=== PATIENT | female | born 1990 | race African-American/Black ===

== ENCOUNTER 2016-07-30 01:22 | Emergency (ER) | payer OTHER ==
[2016-07-30 02:04] VITALS: BP 144/63; PULSE 74; TEMP 97.5; BMI 26.4
[2016-07-30 02:38] LABS: BASOPHIL 0.3 % (0-2.0); EOSINOPHIL 1.2 % (0-4.5); MCH 26.7 pg (25.7-33.7); MCHC 32.5 g/dl (32.0-36.0); MEAN PLT VOLUME 8.1 fl (7.5-11.1); NEUTROPHILS 64.9 % (42.8-82.8); PLATELET COUNT 225 K/MM3 (134-434); RDW 14.3 % (11.6-15.6); WHITE BLOOD COUNT 12.5 K/mm3 (4.0-10.0)
--- NOTE | 2016-07-30 05:06 | PDOC ---
History of Present Illness - General Chief Complaint: Vaginal Bleeding Stated Complaint: ABD PAIN/VAGINAL BLEEDING Time Seen by Provider: 07/30/16 02:11 - History of Present Illness Initial Comments: 07/30/16 05:00 CHIEF COMPLAINT: bleeding s/p HISTORY OF PRESENT ILLNESS: 26 yo F s/p medical yesterday presents to ED with vaginal bleeding. Patient states she was told by [facility] she should go to ER if she has continuous bleeding. Patient states she feels a little dizzy but denies any headache, nausea, vomiting. No recent travel or sick contacts. PAST MEDICAL HISTORY: Denies past medical history FAMILY HISTORY: Denies SOCIAL HISTORY: Denies tobacco, alcohol, illicit drug use. SURGICAL HISTORY: Denies ALLERGIES: No known drug allergies REVIEW OF SYSTEMS General/Constitutional: Denies fever or chills. Denies weakness, weight change. HEENT: Denies change in vision. Denies ear pain or discharge. Denies sore throat. Cardiovascular: Denies chest pain or shortness of breath. Respiratory: Denies cough, wheezing, or hemoptysis. Gastrointestinal: Denies nausea, vomiting, diarrhea or constipation. Denies rectal bleeding. Genitourinary: Vaginal bleeding. Denies dysuria, frequency, or change in urination. Musculoskeletal: Denies joint or muscle swelling or pain. Denies neck or back pain. Skin and breasts: Denies rash or easy bruising. PHYSICAL EXAM General Appearance: Well-appearing, appropriately dressed. No apparent distress , no intoxication. HEENT: EOMI, PERRLA, normal ENT inspection, normal voice, TMs normal, pharynx normal. No conjunctival pallor. No photophobia, scleral icterus. Neck: Supple. Trachea midline. No tenderness, rigidity, carotid bruit, stridor , lymphadenopathy, or thyromegaly. Respiratory/Chest: Lungs CTAB. No shortness of breath, chest tenderness, respiratory distress, accessory muscle use. No crackles, rales, rhonchi, stridor , wheezing, dullness Cardiovascular: RRR. S1, S2. No JVD, murmur, bradycardia, tachycardia. Vascular Pulses: Dorsalis-Pedis (R): 2+, Dorsalis-Pedis (L): 2+ Gastrointestinal/Abdominal: Normal bowel sounds. Abdomen soft, non-distended. No tenderness or rebound tenderness. No organomegaly, pulsatile mass, guarding , hernia, hepatomegaly, splenomegaly. Lymphatic: No adenopathy, tenderness. Musculoskeletal/Extremities: Normal inspection. FROM of all extremities, normal capillary refill. Pelvis Stable. No CVA tenderness. No tenderness to extremities, pedal edema, swelling, erythema or deformity. Integumentary: Appropriate color, dry, warm. No cyanosis, erythema, jaundice or rash Neurologic: roll off driver II-XII intact. Fully oriented, alert. Appropriate mood/affect. Motor strength 5/5. No appreciable EOM palsy, facial droop or sensory deficit. 07/30/16 06:03 Past History - Past Medical History Allergies/Adverse Reactions: Allergies Allergy/AdvReac Type Severity Reaction Status Date / Time ciprofloxacin [From Cipro] Allergy Verified 07/30/16 01:51 ciprofloxacin HCl Allergy Verified 07/30/16 01:51 [From Cipro] Home Medications: Ambulatory Orders Ferrous Sulfate [Slow Fe] 142 mg PO DAILY #14 tablet.er 07/30/16 - Psycho/Social/Smoking Cessation Hx Suicidal Ideation: No Smoking History: Never smoked Have you smoked in the past 12 months: No Information on smoking cessation initiated: No Hx Alcohol Use: No Drug/Substance Use Hx: No *Physical Exam - Vital Signs Last Vital Signs Temp Pulse Resp BP Pulse Ox 97.5 F L 74 14 144/63 100 07/30/16 01:51 07/30/16 01:51 07/30/16 01:51 07/30/16 01:51 07/30/16 01:51 ED Treatment Course - LABORATORY CBC & Chemistry Diagram: 07/30/16 02:25 - ADDITIONAL ORDERS Additional order review: Laboratory Results 07/30/16 02:25 Beta HCG, Quant 70336.8 07/30/16 02:25 RBC 3.64 MCV 82.0 MCHC 32.5 RDW 14.3 MPV 8.1 Neutrophils % 64.9 Lymphocytes % 27.9 Monocytes % 5.7 Eosinophils % 1.2 Basophils % 0.3 - RADIOLOGY Radiology Studies Ordered: Category Date Time Status TRANSVAGINAL ULTRASOUND US [US] Stat Ultrasound 07/30/16 02:21 Taken Medical Decision Making - Medical Decision Making 07/30/16 06:04 26 yo F s/p medical yesterday presents to ED with vaginal bleeding. -CBC -beta hCG -TV US TV US results: Findings: The uterus is anteverted and measures 10.1 x 5.6 x 6.1 cm. The endometrium is thickened and heterogeneous and vascular measuring up to 2.7 cm in diameter. No IUP is seen. The right ovary has a normal appearance containing follicles and measures 3.7 x 2.1 x 2.7 cm. Normal arterial flow seen on color Doppler images. The left ovary has a normal appearance containing follicles and measures 2.9 x 2.4 x 2.6 cm with normal arterial flow seen on color Doppler images. No free fluid seen. Impression: Thickened heterogeneous vascular endometrium consistent with retained products. Normal appearance of both ovaries with normal vascular flow seen bilaterally. Read by: John Benitez M.D. Discussed case with on-call OB MD Maldonado. Patient is within timeframe of medical , can follow up outpatient in office tomorrow. Advised patient to take iron pills as prescribed and follow up with Dr. Maldonado tomorrow. Advised patient of signs and symptoms for return to ER; patient verbalized understanding and agrees to plan. *DC/Admit/Observation/Transfer Diagnosis at time of Disposition: Medical - Discharge Dispostion Disposition: HOME Condition at time of disposition: Stable Admit: No - Prescriptions Prescriptions: Ferrous Sulfate [Slow Fe] 142 mg PO DAILY #14 tablet.er - Referrals Referrals: Lake Maldonado MD [Staff Physician] - - Patient Instructions Printed Discharge Instructions: DI for Therapeutic : Medical Additional Instructions: Please take iron pills as directed and follow up with Dr. Maldonado tomorrow at 9 am. If you experience any worsening dizziness, change in vision, difficulty breathing, or any new or worsening symptoms, please return to the ER.
== END 2016-07-30 05:30 | disposition home or self-care (01) ==
LOC: JER 01:22
DX: O03.9 Complete or unspecified spontaneous abortion without complication (principal)
CPT/HCPCS: 36415; 76830-TC; 84702; 85025; 99282-25

== ENCOUNTER 2016-08-07 22:42 | Emergency (ER) | payer OTHER ==
--- NOTE | 2016-08-07 22:45 | PDOC ---
History of Present Illness - General Stated Complaint: VAGINAL BLEEDING Time Seen by Provider: 08/07/16 22:44 History Source: Patient - History of Present Illness Initial Comments: 08/08/16 03:18 LMP 05/28/2016 26-year-old female without any past medical history presents complaining of vaginal bleed with lower abdominal cramping but denies fever, chills, nausea/ vomiting/diarrhea, chest pain, shortness of breath, flank pains, urinary symptoms. Patient states she went to [facility] one week ago for an elective . Patient was given by mouth meds for 2 days. Patient states she does not know her beta hCG was states she was approximately 9 weeks . This evening, patient states she noticed increased vaginal bleeding which prompted her to be seen in the ER. 08/08/16 04:18 Dr. Maldonado/e commerce strategist burial needs salesperson will admit the patient for a D&C today. When I advised the patient that she will be admitted to the NOVELTY WORKER service for D&C today, patient adamantly refused. Patient states she will go to [facility] to have any procedures done. Past History - Past Medical History Allergies/Adverse Reactions: Allergies Allergy/AdvReac Type Severity Reaction Status Date / Time ciprofloxacin [From Cipro] Allergy Verified 08/07/16 22:48 ciprofloxacin HCl Allergy Verified 08/07/16 22:48 [From Cipro] Home Medications: Ambulatory Orders Ferrous Sulfate [Slow Fe] 142 mg PO DAILY #14 tablet.er 07/30/16 - Reproductive History (#): 4 Para: 2 Cervical CA: No Dysfunctional Uterine Bleeding: No Ectopic : No Endometrial CA: No Polycystic Ovaries: No Therapeutic (s) & number: Yes Tubal Ligation: No Spontaneous : 0 - Psycho/Social/Smoking Cessation Hx Suicidal Ideation: No Smoking History: Never smoked Have you smoked in the past 12 months: No Hx Alcohol Use: No Drug/Substance Use Hx: No Review of Systems - Review of Systems Able to Perform ROS?: Yes Comments:: 08/08/16 03:22 CONSTITUTIONAL: Absent: fever, chills, diaphoresis, generalized weakness, malaise, loss of appetite HEENT: Absent: rhinorrhea, nasal congestion, throat pain, throat swelling, difficulty swallowing, mouth swelling, ear pain, eye pain, visual Changes CARDIOVASCULAR: Absent: chest pain, loss of consciousness, palpitations, irregular heart rate, peripheral edema RESPIRATORY: Absent: cough, shortness of breath, dyspnea with exertion, orthopnea, wheezing, stridor, hemoptysis GASTROINTESTINAL: Absent: abdominal pain, abdominal distension, nausea, vomiting, diarrhea, constipation, melena, hematochezia GENITOURINARY: Absent: dysuria, frequency, urgency, hesitancy, hematuria, flank pain, genital pain MUSCULOSKELETAL: Absent: myalgia, arthralgia, joint swelling SKIN: Absent: rash, itching, pallor HEMATOLOGIC/IMMUNOLOGIC: Absent: easy bleeding, easy bruising, lymphadenopathy, frequent infections ENDOCRINE: Absent: unexplained weight gain, unexplained weight loss, heat intolerance, cold intolerance NEUROLOGIC: Absent: headache, focal weakness or paresthesias, dizziness, unsteady gait, seizure, mental status changes, bladder or bowel incontinence PSYCHIATRIC: Absent: anxiety, depression, suicidal or homicidal ideation, hallucinations. Is the patient limited Bulgarian proficient: No *Physical Exam - Physical Exam Comments: 08/08/16 03:22 GENERAL: Well developed, well nourished. Awake and alert. No acute distress. HEENT: Normocephalic, atraumatic. PERRLA, EOMI. No conjunctival pallor. Sclera are non- icteric. Moist mucous membranes. Oropharynx is clear. NECK: Supple. Full ROM. No JVD. Carotid pulses 2+ and symmetric, without bruits. No thyromegaly. No lymphadenopathy. CARDIOVASCULAR: Regular rate and rhythm. No murmurs, rubs, or gallops. Distal pulses are 2+ and symmetric. PULMONARY: No evidence of respiratory distress. Lungs clear to auscultation bilaterally. No wheezing, rales or rhonchi. ABDOMINAL: Soft. Non-tender. Non-distended. No rebound or guarding. No organomegaly. Normoactive bowel sounds. MUSCULOSKELETAL Normal range of motion at all joints. No bony deformities or tenderness. No CVA tenderness. EXTREMITIES: No cyanosis. No clubbing. No edema. No calf tenderness. SKIN: Warm and dry. Normal capillary refill. No rashes. No jaundice. NEUROLOGICAL: Alert, awake, appropriate. Cranial nerves 2-12 intact. No deficits to light touch and temperature in face, upper extremities and lower extremities. No motor deficits in the in face, upper extremities and lower extremities. Normoreflexic in the upper and lower extremities. Normal speech. Toes are down- going bilaterally. Gait is normal without ataxia. PSYCHIATRIC: Cooperative. Good eye contact. Appropriate mood and affect. Pelvic: External genitalia normal without lesions. Vaginal vault = blood clots cervix/closed/smooth without lesions ED Treatment Course - LABORATORY CBC & Chemistry Diagram: 08/07/16 21:50 08/07/16 21:50 *DC/Admit/Observation/Transfer Diagnosis at time of Disposition: Retained products of conception - Discharge Dispostion Disposition: AGAINST MEDICAL ADVICE Condition at time of disposition: Guarded - Referrals Referrals: Desire Ahumada [Primary Care Provider] - Lake Maldonado MD [Staff Physician] - - Patient Instructions Additional Instructions: You have advised that I got into contact with our yarn weight and strength tester burial needs salesperson/ Dr. Maldonado. He agreed to admit you for a procedure today, D&C to remove the retained products from your . You adamantly refused to be admitted TO be seen by our hand touch up painter. You insists on being discharged. I strongly advised you it is the right thing to do to have you admitted to our gynecology service. You further stated to me that you will go to [facility] to have any necessary procedures done today. You fully understand that you are being discharged AGAINST MEDICAL ADVICE and you have fine our AGAINST MEDICAL ADVICE form. Please return back to the emergency department for persistent/severe discomfort and symptoms.
[2016-08-07] MEDS ORDERED: SODIUM CHLORIDE 1,000 ML IV STA (22:46)
[2016-08-07 22:58] VITALS: TEMP 98.4; BMI 26.5
[2016-08-07 23:39] LABS: URINE APPEARANCE CLOUDY; URINE BILIRUBIN NEGATIVE (NEGATIVE); URINE BLOOD 3+ (NEGATIVE); URINE COLOR YELLOW; URINE GLUCOSE (UA) NEGATIVE (NEGATIVE); URINE KETONE NEGATIVE (NEGATIVE); URINE LEUK ESTERASE 1+ (NEGATIVE); URINE NITRITE NEGATIVE (NEGATIVE); URINE PROTEIN 1+ (NEGATIVE); URINE UROBILINOGEN NEGATIVE E.U./dl (0.2-1.0)
[2016-08-07 23:40] LABS: BASOPHIL 0.2 % (0-2.0); EOSINOPHIL 0.9 % (0-4.5); MCHC 31.7 g/dl (32.0-36.0); MEAN CELL VOLUME 82.1 fl (80-96); MEAN PLT VOLUME 8.1 fl (7.5-11.1); NEUTROPHILS 63.9 % (42.8-82.8); PLATELET COUNT 265 K/MM3 (134-434); WHITE BLOOD COUNT 10.3 K/mm3 (4.0-10.0)
[2016-08-07 23:45] LABS: URINE MUCUS MANY; URINE RBC 2508 /hpf (0-3); URINE WBC 45 /hpf (3-5)
[2016-08-08 00:01] LABS: ALBUMIN 3.6 g/dl (3.4-5.0); ANION GAP 7 (8-16); BILIRUBIN,TOTAL 0.2 mg/dL (0.2-1.0); CALCIUM 8.6 mg/dL (8.5-10.1); CO2 28 mmol/L (21-32); CREATININE 0.6 mg/dL (0.55-1.02); GLUCOSE,RANDOM 87 mg/dL (74-106); SGOT/AST 14 U/L (15-37); SGPT/ALT 16 U/L (12-78); TOT PROT 6.4 g/dl (6.4-8.2)
[2016-08-08 00:02] LABS: ALK PHOS 49 U/L (45-117)
--- NOTE | 2016-08-08 01:11 | PDOC ---
*Physical Exam - Vital Signs Last Vital Signs Temp Pulse Resp BP Pulse Ox 98.4 F 92 H 20 118/50 98 08/07/16 22:49 08/07/16 22:49 08/07/16 22:49 08/07/16 22:49 08/07/16 22:49 ED Treatment Course - LABORATORY CBC & Chemistry Diagram: 08/07/16 21:50 08/07/16 21:50 - ADDITIONAL ORDERS Additional order review: Laboratory Results 08/07/16 08/07/16 21:50 21:50 Sodium 140 Potassium 3.6 Chloride 105 Carbon Dioxide 28 Anion Gap 7 L BUN 7 Creatinine 0.6 Creat Clearance w eGFR > 60 Random Glucose 87 Calcium 8.6 Total Bilirubin 0.2 AST 14 L ALT 16 Alkaline Phosphatase 49 Total Protein 6.4 Albumin 3.6 Urine Color Yellow Urine Appearance Cloudy Urine pH 7.0 Ur Specific [place] 1.020 Urine Protein 1+ H Urine Glucose (UA) Negative Urine Ketones Negative Urine Blood 3+ H Urine Nitrite Negative Urine Bilirubin Negative Urine Urobilinogen Negative Ur Leukocyte Esterase 1+ H Urine RBC 2508 Urine WBC 45 Ur Epithelial Cells Rare Urine Mucus Many Urine HCG, Qual Positive 08/07/16 21:50 RBC 3.05 L MCV 82.1 MCHC 31.7 L RDW 15.0 MPV 8.1 Neutrophils % 63.9 Lymphocytes % 28.5 Monocytes % 6.5 Eosinophils % 0.9 Basophils % 0.2 - Medications Given in the ED: ED Medications Discontinued Medications Generic Name Dose Route Start Last Admin Trade Name Freq PRN Reason Stop Dose Admin Sodium Chloride 1,000 mls @ 1,000 mls/hr 08/07/16 22:46 08/07/16 23:52 Normal Saline - IV 08/07/16 23:45 1,000 mls/hr ASDIR STA Administration Medical Decision Making - Medical Decision Making 08/08/16 01:11 Laboratory Tests 08/07/16 08/07/16 08/07/16 21:50 21:50 21:50 WBC 10.3 H Hgb 7.9 L D Hct 25.0 L D Plt Count 265 BUN 7 Creatinine 0.6 Urine RBC 2508 Urine WBC 45 Urine HCG, Qual Positive Pt seen by Midlevel Provider under my direct supervision Ancillary studies reviewed I agree with plan as outlined by Midlevel Provider *DC/Admit/Observation/Transfer Diagnosis at time of Disposition: Retained products of conception - Discharge Dispostion Disposition: AGAINST MEDICAL ADVICE Condition at time of disposition: Guarded - Referrals Referrals: Lake Maldonado MD [Staff Physician] - Desire Ahumada [Primary Care Provider] - - Patient Instructions Additional Instructions: You have advised that I got into contact with our rn gynecology television news video editor/ Dr. Maldonado. He agreed to admit you for a procedure today, D&C to remove the retained products from your . You adamantly refused to be admitted TO be seen by our museum exhibit technician. You insists on being discharged. I strongly advised you it is the right thing to do to have you admitted to our gynecology service. You further stated to me that you will go to [facility] to have any necessary procedures done today. You fully understand that you are being discharged AGAINST MEDICAL ADVICE and you have fine our AGAINST MEDICAL ADVICE form. Please return back to the emergency department for persistent/severe discomfort and symptoms.
[2016-08-08 04:39] VITALS: BP 121/64; PULSE 89
== END 2016-08-08 04:39 | disposition left against medical advice (07) ==
LOC: JER 22:42
PROC: 3E0337Z Introduction of Electrolytic and Water Balance Substance into Peripheral Vein, Percutaneous Approach (ICD-10-PCS; principal; 2016-08-07)
DX: O03.4 Incomplete spontaneous abortion without complication (principal)
CPT/HCPCS: 36415; 76830-TC; 80053; 81003; 81015; 84702; 84703; 85025; 86850; 86900; 86901; 96360; 99283-25